=== PATIENT | male | born 1955 | race Asian ===

== ENCOUNTER 2020-03-03 07:08 | Observation (INO) | payer BC, OTHER ==
[2020-02-29 14:17] LABS: BASOPHILS # (AUTO) 0.1 (0.0-0.1); BASOPHILS % 0.7 % (0.0-1.0); EOSINOPHILS # (AUTO) 0.2 (0.0-0.4); EOSINOPHILS % 3.1 % (0.0-6.0); HEMATOCRIT 43.3 % (38.2-49.6); HEMOGLOBIN 14.5 g/dL (14.0-18.0); LYMPHOCYTES # (AUTO) 1.7 (1.0-3.2); LYMPHOCYTES % 25.8 % (18.0-39.1); MEAN CORPUSCULAR HEMOGLOBIN 29.7 pg (28-32); MEAN CORPUSCULAR HGB CONC 33.5 g/dL (31-35); MEAN CORPUSCULAR VOLUME 88.5 fL (81-99); MONOCYTES # (AUTO) 0.6 (0.2-0.8); MONOCYTES % 8.3 % (4.4-11.3); NEUTROPHILS # (AUTO) 4.2 (2.1-6.9); NEUTROPHILS % 61.8 % (38.7-80.0); PLATELET COUNT 230 x10e3/uL (140-360); RED BLOOD COUNT 4.89 x10e6/uL (4.3-5.7); RED CELL DISTRIBUTION WIDTH 12.9 % (11.7-14.4)
[2020-02-29 14:22] LABS: INR 1.06; PROTHROMBIN TIME 14.5 seconds (11.9-14.5)
[2020-02-29 14:23] LABS: PARTIAL THROMBOPLASTIN TIME 32.3 seconds (23.8-35.5)
[2020-02-29 14:27] LABS: BLOOD UREA NITROGEN 10 mg/dL (7-26); BUN/CREATININE RATIO 10 (6-25); CALCIUM 8.8 mg/dL (8.4-10.2); CARBON DIOXIDE 24 mmol/L (22-29); CHLORIDE 108 mmol/L (98-107); CREATININE, SERUM 1.02 mg/dL (0.72-1.25); EST GLOMERULAR FILTRATION RATE > 60 ML/MIN (60-); GLUCOSE 80 mg/dL (74-118); SODIUM 141 mmol/L (136-145)
--- NOTE | 2020-02-29 15:02 | Diagnostic Imaging Report ---
EXAM: CHEST 2 VIEWS DATE: 02/29/2020 2:45 PM INDICATION: Preoperative evaluation COMPARISON: None FINDINGS: The trachea is midline. The lungs are symmetrically expanded without evidence for large focal consolidation, pneumothorax, or significant pleural effusion. The cardiomediastinal silhouette and pulmonary vasculature are within normal limits. No acute osseous abnormality is identified. The surrounding soft tissues are unremarkable. IMPRESSION: No acute cardiopulmonary process identified. Signed by: Dr. López Buenrostro MD on 02/29/2020 2:58 PM
[~2020-03-03] VITALS: Ht 165.1 cm; Wt 61.7 kg
[~2020-03-03 07:08] MED LIST: ASPIRIN81 MG PO; LIPITOR20 MG PO
[2020-03-03] MEDS ORDERED: ACETAMINOPHEN 1000 MG/100 ML 100 ML IV ONE (07:20)
[2020-03-03] MEDS ORDERED: LIDOCAINE HCL (LTA) 4 ML SOLN ONE (07:20)
[2020-03-03] MEDS ORDERED: IBUPROFEN 800MG/ 200ML 200 ML IV ONE (07:21)
[2020-03-03] MEDS ORDERED: CEFAZOLIN SOD 1 GM/NS 50ML 50 ML IV ONE (08:03)
[2020-03-03] MEDS ORDERED: THROMBIN FOR SOLN 5,000 UNIT VIAL ONE (08:07)
[2020-03-03] MEDS ORDERED: BACITRACIN 50,000 UNIT VIAL ONE (08:07)
[2020-03-03] MEDS ORDERED: BUPIVACAINE 0.25%/EPI 30ML SDV INJ ONE (08:07)
[2020-03-03] MEDS ORDERED: CEPACOL SORE THROAT LOZENGES PO PRN (11:00)
[2020-03-03] MEDS ORDERED: ZOLPIDEM TARTRATE 5 MG TAB PO PRN (11:00)
[2020-03-03] MEDS ORDERED: MORPHINE SULFATE 5 MG/ML VIAL IM PRN (11:00)
[2020-03-03] MEDS ORDERED: MAGNESIUM/ALUMINUM/SIMETHICONE 30 ML UDC PO PRN (11:00)
[2020-03-03] MEDS ORDERED: HYDROMORPHONE 2MG/ML 2 MG/ML ML IV PRN (11:00)
[2020-03-03] MEDS ORDERED: CARISOPRODOL 350 MG TAB PO PRN (11:00)
[2020-03-03] MEDS ORDERED: OXYCODONE/ACETAMINOPHEN 5-325 1 EACH TABLET PO PRN ×2 (11:00→19:15)
[2020-03-03] MEDS ORDERED: ACETAMINOPHEN 325 MG TAB PO PRN (11:00)
[2020-03-03] MEDS ORDERED: ONDANSETRON HCL INJ 2MG/ML 2ML 2 MG/ML VIAL IV PRN (11:00)
[2020-03-03] MEDS ORDERED: PROMETHAZINE HCL (IM) 25 MG/ML VIAL IM PRN (11:00)
--- NOTE | 2020-03-03 18:20 | NUR ---
pt arrived to unit , resp even and unlabored at this time, pt able to make need known, pt amb. from stretcher to bed, bed in lowest position, bed rails up x2, pt oriented to room and call light.
[2020-03-03 18:30] VITALS: BP 130/80
--- NOTE | 2020-03-03 18:46 | Operative Report ---
DATE OF PROCEDURE: 03/03/2020 SURGEON: Bakari Zhang MD PREOPERATIVE DIAGNOSIS: C5-6 spondylosis and foraminal stenosis with radiculopathy, M50.122. POSTOPERATIVE DIAGNOSIS: C5-6 spondylosis and foraminal stenosis with radiculopathy, M50.122. PROCEDURE: 1. C5-6 anterior cervical diskectomy and microsurgical osteophyte resection and allograft fusion, 78122. 2. Preparation of MTF corticocancellous allograft, 57571. 3. C5-C6 anterior cervical plating with Synthes DPM plate, [id number]. ANESTHESIA: General. INDICATIONS: The patient is a 64-year-old man who presents with C5-6 spondylosis and foraminal stenosis with left-sided C6 radiculopathy refractory to conservative treatment. He was taken surgery for C5-6 anterior cervical decompression and fusion. PROCEDURE IN DETAIL: After induction of anesthesia, the patient was placed on the operative table in supine position. The right side of the neck was prepped and draped in sterile fashion. The fluoroscopic C-arm was positioned in cross-table lateral orientation. A small transverse incision was created on the right side of neck, superimposed on the C5-6 disk space as determined by fluoroscopy. The platysma was divided in line with the incision. A subplatysmal dissection was carried out and avascular plane of dissection was developed medially. Sternocleidomastoid muscle was followed medial to the carotid sheath to the anterior border of cervical spine. The deep cervical fascia was opened. The esophagus was retracted to the left. The attachments of longus colli muscles. The anterolateral aspects of vertebral bodies of C5 and C6 were divided. The anterior longitudinal ligament was resected. [place] posts were inserted into C5 and C6. The [place] distractor was used to distract the disk space. The anterior annulus of this was incised with a #11 blade and the contents of the disk were thoroughly evacuated with angled curettes and pituitary rongeurs. The posterior osteophytes were then meticulously drilled under the operating microscope with a 2 mm cutting annamaria until they were completely removed. The posterior annulus of the disk, herniated disk material, and the posterior longitudinal ligament were resected layer by layer until the dura was fully exposed and decompressed. The medial aspects of the uncinate processes were resected bilaterally to further expose any compress origins of the corresponding nerve roots. After satisfactory decompression had been achieved, the endplates were prepared for fusion. The disk space was sized and found to be 8 mm in height. A piece of MTF corticocancellous allograft was loaded onto a Synthes DPM plate and inserted into the C5-6 disk space under distraction and fluoroscopic guidance. The distraction was released and distraction posts were removed. The plate was then screwed to the endplates of C5 and C6 with two pairs of 14 mm screws. All screws were locked and excellent construct was obtained. The wound was copiously irrigated with bacitracin solution. Meticulous hemostasis was secured. Retractor was removed. The platysma was closed with 3-0 Vicryl sutures. The skin was closed with 4-0 Monocryl sutures in subcuticular fashion. Steri-Strips and dressing were applied. The patient was awakened, extubated, and taken to postanesthesia care unit in stable condition. No intraoperative complications were encountered. ESTIMATED BLOOD LOSS: 10 mL. Bakari Zhang MD PP/MODL /[id number]
[2020-03-03] MEDS: LACTATED RINGER'S 1,000 ML IV SCH (19:00)
[2020-03-03] MEDS: CEFAZOLIN SOD 1 GM/NS 50ML 50 ML IV SCH (19:00)
[2020-03-03] MEDS ORDERED: MORPHINE SULFATE INJ 4 MG/ML INJ 1ML IM PRN (19:15)
--- NOTE | 2020-03-03 19:49 | NUR ---
report given to coming nurse, walking rounds complete
[2020-03-03 20:00] VITALS: BP 117/85
[2020-03-03] MEDS ORDERED: FENTANYL CITRATE/PF 100MCG/2 ML INJ ONE (20:18)
[2020-03-03] MEDS ORDERED: MIDAZOLAM HCL 2 MG/2 ML VIAL ONE (20:18)
[2020-03-03] MEDS ORDERED: ATORVASTATIN 10 MG TAB PO SCH (21:00)
[2020-03-03] MEDS ORDERED: SEVOFLURANE INHAL SOLN 250 ML PEN BTL ONE (21:23)
[2020-03-03] MEDS ORDERED: DEXAMETHASONE SOD PHOS INJ 4 MG/ML VIAL ONE (21:23)
[2020-03-03] MEDS ORDERED: NEOSTIGMINE 1 MG/ML 10ML VIAL ONE (21:23)
[2020-03-03] MEDS ORDERED: ROCURONIUM BROMIDE 10 MG/ML 5ML VIAL IV ONE (21:23)
[2020-03-03] MEDS ORDERED: EPHEDRINE SULFATE INJ 50 MG/ML VIAL ONE (21:23)
[2020-03-03] MEDS ORDERED: GLYCOPYRROLATE INJ 0.2 MG/ML VIAL ONE (21:23)
[2020-03-03] MEDS ORDERED: ONDANSETRON HCL INJ 2MG/ML 2ML 2 MG/ML VIAL ONE (21:23)
[2020-03-03] MEDS ORDERED: LIDOCAINE HCL 2% LOCAL INJ 5 ML SDV VIAL INJ ONE (21:23)
[2020-03-03] MEDS ORDERED: PROPOFOL IV EMULSION 10 MG/ML 20 ML VIAL ONE (21:23)
[2020-03-04] VITALS: BP 109/77
[2020-03-04] MEDS: CEFAZOLIN SOD 1 GM/NS 50ML 50 ML IV SCH ×2 (02:04→09:42)
[2020-03-04 04:00] VITALS: BP 114/74
[2020-03-04] MEDS: LACTATED RINGER'S 1,000 ML IV SCH ×2 (04:02→09:42)
--- NOTE | 2020-03-04 07:16 | NUR ---
REPORT GIVEN TO DAYSHIFT NURSE. PATIENT IN STABLE CONDITION. BED LOCKED AND IN LOW POSITION. CALL LIGHT WITHIN REACH. NO SIGNS IV INFILTRATION.
[2020-03-04 08:00] VITALS: BP 118/78
--- NOTE | 2020-03-04 09:03 | Diagnostic Imaging Report ---
EXAMINATION: C-SPINE 2 VIEWS AP LATERAL INDICATION: Postoperative COMPARISON: None FINDINGS: AP and lateral radiographs of the cervical spine demonstrate postoperative findings of anterior cervical discectomy and fusion at C5-6. Mild straightening of the normal cervical lordosis. Alignment is otherwise intact. No unexpected acute osseous injury. Mild postoperative prevertebral soft tissue swelling. Partially visualized lung bases are clear. IMPRESSION: Expected postoperative findings status post anterior cervical discectomy and fusion at C5-6. Signed by: Yaz Escoto MD on 03/04/2020 8:59 AM
[2020-03-04 09:46] VITALS: BP 118/78
[2020-03-04 12:00] VITALS: BP 118/72
== END 2020-03-04 14:05 | disposition home or self-care (01) ==
LOC: OR 07:08 → PACU V 10:56 → MED/SURG 18:24
PROVIDERS: ADMIT Neurological Surgery; ATTEND Neurological Surgery
DX: M50.122 Cervical disc disorder at C5-C6 level with radiculopathy (principal); I25.10 Atherosclerotic heart disease of native coronary artery without angina pectoris; Z95.5 Presence of coronary angioplasty implant and graft; G47.33 Obstructive sleep apnea (adult) (pediatric); Z11.59 Encounter for screening for other viral diseases
CPT/HCPCS: 20931; 22551; 22845; 36415; 71046; 72040; 77003; 80048; 85025; 85610; 85730; 86850; 86900; 87635; 88304; 93005; G0378 ×2; J0131; J0690 ×2; J1100; J1170; J2001; J2405; J2704; J2710; J7121 ×2; J2270

== ENCOUNTER → 2021-07-27 | Outpatient (CLI) | payer BC | LOC: RAD 11:33 | PROVIDERS: ATTEND Neurological Surgery | DX: M50.20 Other cervical disc displacement, unspecified cervical region (principal); M43.22 Fusion of spine, cervical region | CPT/HCPCS: 72050 ==